=== PATIENT | female | born 1995 | race Hispanic/Latino ===

== ENCOUNTER 2020-09-29 06:19 | Day surgery (SDC) | payer OTHER ==
[~2020-09-29 06:19] MED LIST: CVS OMEPRAZOLE20 M1 PO
[2020-09-29] MEDS ORDERED: PERCOCET 5/325M1 TAB PO (08:18)
[2020-09-29 09:32] VITALS: BP 120/63
== END 2020-09-29 09:50 | disposition home or self-care (01) ==
LOC: ORM 06:19 → ENDO 06:19
PROVIDERS: ATTEND Surgery
DX: K80.10 Calculus of gallbladder with chronic cholecystitis without obstruction (principal); Z87.442 Personal history of urinary calculi
CPT/HCPCS: J0131; J1610; J2710; Q9967